=== PATIENT | male | born 1995 | race Two or more races ===

== ENCOUNTER 2019-03-10 04:58 | Emergency (ER) | payer SELFPAY ==
[~2019-03-10] VITALS: Ht 170.2 cm; Wt 69.4 kg
[2019-03-10] MEDS ORDERED: Omnipaque-300 100ml vial INJ ONE (05:15)
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
[2019-03-10 05:31] VITALS: BP 124/72
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
[2019-03-10 05:38] LABS: BASOPHILS % (AUTO) 0.6 % (0.0-2.0); EOSINOPHILS % (AUTO) 1.2 % (0.0-3.0); HEMATOCRIT 47.6 % (42.0-52.0); LYMPHOCYTES % (AUTO) 24.2 % (20.0-45.0); MEAN CORPUSCULAR VOLUME 80 FL (80-99); MONOCYTES % (AUTO) 5.8 % (1.0-10.0); NEUTROPHILS % (AUTO) 68.2 % (45.0-75.0); PLATELET COUNT 254 K/UL (150-450); RED BLOOD COUNT 5.96 M/UL (4.70-6.10); WHITE BLOOD COUNT 12.1 K/UL (4.8-10.8)
[2019-03-10 05:47] LABS: ANION GAP 7 mmol/L (5-15); BLOOD UREA NITROGEN 12 mg/dL (7-18); CALCIUM 8.4 MG/DL (8.5-10.1); CARBON DIOXIDE 28 MMOL/L (21-32); CHLORIDE 105 MMOL/L (98-107); CREATININE 0.9 MG/DL (0.55-1.30); POTASSIUM 3.6 MMOL/L (3.5-5.1); SODIUM 140 MMOL/L (136-145)
--- NOTE | 2019-03-10 07:04 | Diagnostic Imaging Report ---
Indication: Headache Technique: Contiguous 5 mm thick transaxial imaging of the head obtained in a Siemens Sensation [address] scanner. Soft tissue and bone windows generated. Automatic Exposure Control was utilized. Total Dose length Product (DLP): [address] Dose Index Volume (CTDIvol): 62.7 mGy Comparison: none Findings: The size and configuration of the cortical sulci, basal cisterns, and ventricles are within normal limits for age. There is no mass effect, midline shift, or edema identified. There is no evidence of acute hemorrhage or abnormal intra-axial or extra-axial fluid collections. The bones and soft tissues are unremarkable. Impression: No mass effect, edema or acute bleed. [facility] has communicated the preliminary results to the Emergency Department. Their findings are largely concordant with this report. The CT scanner at [facility] is accredited by the [employer] and the scans are performed using dose optimization techniques as appropriate to a performed exam including Automatic Exposure control.
[2019-03-10 07:08] VITALS: BP 131/85
--- NOTE | 2019-03-10 07:09 | NUR ---
ED Nurse Note: Patient returned from CT scan in stable condition. X-ray at bedside.
[2019-03-10] MEDS ORDERED: Ketorolac 30mg Inj IV ONE (07:15)
--- NOTE | 2019-03-10 07:25 | Diagnostic Imaging Report ---
Indication: Cervical trauma/pain. Technique: Continuous helical imaging of the cervical spine was obtained transaxially from the skull base to the upper thoracic spine. 2-D coronal and sagittal reformatted images were obtained. Automatic Exposure Control was utilized. Total Dose length Product (DLP): 196.[address] Dose Index Volume (CTDIvol): 6.3 mGy Comparison: None Findings: There is no evidence of an acute fracture or malalignment. Atlantoaxial alignment appears normal. Height and configuration of the vertebral bodies and intervertebral discs are within normal limits. Uncovertebral joints and facets are unremarkable. There is no soft tissue swelling. Impression: Negative cervical spine CT [facility] has communicated the preliminary results to the Emergency Department. Their findings are largely concordant with this report. The CT scanner at [facility] is accredited by the [employer] and the scans are performed using dose optimization techniques as appropriate to a performed exam including Automatic Exposure control.
--- NOTE | 2019-03-10 07:28 | Diagnostic Imaging Report ---
Indication: Back pain. Trauma Technique: Continuous helical transaxial imaging of the thoracic spine was obtained from the lung bases to the pubic symphysis. No IV contrast was administered. Coronal 2-D reformats were also obtained. Study obtained in a Siemens sensation [address] Total Dose length Product (DLP): 637.[address] Dose Index Volume (CTDIvol): 15.5 mGy Comparison: None Findings: The height and configuration of the vertebral bodies and intervertebral discs are normal. No acute fracture is identified. Soft tissues are unremarkable. IMPRESSION: No acute injury. [facility] has communicated the preliminary results to the Emergency Department. Their findings are largely concordant with this report. The CT scanner at [facility] is accredited by the [employer] and the scans are performed using dose optimization techniques as appropriate to a performed exam including Automatic Exposure control.
--- NOTE | 2019-03-10 07:34 | Diagnostic Imaging Report ---
INDICATION: Chest and abdominal pain. Trauma TECHNIQUE: Continuous helical transaxial imaging of the chest, abdomen and pelvis was obtained from the lung bases to the pubic symphysis during intravenous contrast administration. Multiple phases of enhancement obtained. Coronal 2-D reformats were also obtained. Study obtained in a Siemens sensation [address] Automatic Exposure Control was utilized. Total Dose length Product (DLP): [address] Dose Index Volume (CTDIvol): 9.5 mGy COMPARISON: None FINDINGS: CT CHEST: Small paraseptal blebs noted at the lung apices nonspecific. The lungs are clear. There is no pneumothorax or infiltrate. No abnormal fluid collection such as pleural or pericardial fluid identified. Mediastinum is unremarkable. CT ABDOMEN & PELVIS: There is no evidence of solid organ injury on this exam. No free fluid identified. Bowel gas pattern is nonspecific. Osseous and soft tissue structures appear intact. IMPRESSION: No evidence of acute injury. [facility] has communicated the preliminary results to the Emergency Department. Their findings are largely concordant with this report. The CT scanner at [facility] is accredited by the [employer] and the scans are performed using dose optimization techniques as appropriate to a performed exam including Automatic Exposure control.
--- NOTE | 2019-03-10 07:37 | NUR ---
ED Nurse Note: MD at bedside.
--- NOTE | 2019-03-10 07:39 | NUR ---
ED Nurse Note: Patient's phone retrieved from friend and given to patient. Patient requested MD to charge phone in nurses station.
--- NOTE | 2019-03-10 07:39 | Diagnostic Imaging Report ---
Indication: Back pain. Trauma Technique: Continuous helical transaxial imaging of the lumbar spine was obtained. Coronal 2-D reformats were also obtained. Study obtained in a Siemens sensation [address] Total Dose length Product (DLP): 847.[address] Dose Index Volume (CTDIvol): 19.6 mGy Comparison: None Findings: There is no evidence of an acute fracture or malalignment. Height and configuration of the vertebral bodies and intervertebral discs are within normal limits. The facets are unremarkable. There is no soft tissue swelling. Impression: Negative lumbar spine CT The CT scanner at [facility] is accredited by the [employer] and the scans are performed using dose optimization techniques as appropriate to a performed exam including Automatic Exposure control.
[2019-03-10] MEDS ORDERED: ROBAXIN-750750 MG PO (08:18)
[2019-03-10] MEDS ORDERED: IBUPROFEN600 MG ORAL (08:18)
--- NOTE | 2019-03-10 08:25 | NUR ---
ED Nurse Note: Patient placed in left knee immobilizer and crutches. Instructions provided. Addendum: 03/10/19 at 0835 by [facility] ED Nurse Note: Patient placed in left knee immobilizer and crutches. Instructions provided. Patient verbalized understanding.
--- NOTE | 2019-03-10 08:25 | NUR ---
ED Nurse Note: ER at bedside giving discharge instructions and information.
--- NOTE | 2019-03-10 08:30 | NUR ---
ER DISCHARGE NOTE: Patient is cleared to be discharged per ERMD, pt is aox4, on room air, with stable vital signs. pt was given dc and prescription instructions, pt was able to verbalize understanding, pt id band and iv site removed without complications. pt is able to ambulating with crutches. pt took all belongings. pt stable upon discharge.
[2019-03-10 08:31] VITALS: BP 118/75
--- NOTE | 2019-03-10 11:32 | Diagnostic Imaging Report ---
INDICATION: Knee Pain COMPARISON: None 3 views of the left knee were obtained. FINDINGS: No acute fracture, malalignment, or joint effusion are identified. Impression: Negative for acute injury
--- NOTE | 2019-03-11 13:56 | Cardiology Report ---
APPROVED REPORT EKG Measurement Heart [id number] Normal sinus rhythm Cannot rule out Anterior infarct, age undetermined Abnormal ECG
== END 2019-03-10 08:25 | disposition home or self-care (01) ==
LOC: EMR 05:20
DX: S20.219A Contusion of unspecified front wall of thorax, initial encounter (principal); S83.92XA Sprain of unspecified site of left knee, initial encounter; J43.8 Other emphysema; V43.52XA Car driver injured in collision with other type car in traffic accident, initial encounter; Y92.411 Interstate highway as the place of occurrence of the external cause
CPT/HCPCS: 36415; 70450; 71260; 72125; 72128; 72131; 73562; 74177; 80048; 84484; 85025; 93005; 96361; 96374; 99284; G0480; J1885; J7030; Q9967